=== PATIENT | male | born 1935 | race Caucasian/White ===

== ENCOUNTER 2017-06-17 09:00 | Outpatient (CLI) | payer MEDICARE ==
[2017-06-17] VITALS (8 sets, daily range): BP systolic 93–148; BP diastolic 49–73
[~2017-06-17] VITALS: Ht 165.1 cm; Wt 68.0 kg
[2017-06-17 09:24] LABS: HEMOGLOBIN 12.3 g/dL (13.0-17.5); RED BLOOD COUNT 3.87 x10^6/uL (4.30-5.70); RED CELL DISTRIBUTION WIDTH 13.3 % (11.5-14.5); WHITE BLOOD COUNT 9.7 x10^3/uL (4.0-11.0)
[2017-06-17 09:32] LABS: CALCIUM 9.1 mg/dL (8.5-10.1); CREATININE 1.4 mg/dL (0.7-1.3); GFR 48.6; POTASSIUM 4.5 mmol/L (3.5-5.1)
[2017-06-17 09:38] LABS: INR 1.1 (0.8-1.1); PROTHROMBIN TIME PATIENT 13.8 SEC (11.7-14.0)
[2017-06-17] MEDS ORDERED: FLUT9.9S NS (09:50)
[2017-06-17] MEDS ORDERED: METO-269 PO (09:50)
[2017-06-17] MEDS ORDERED: RAMI10CA34 PO (09:50)
[2017-06-17] MEDS ORDERED: ASPI-482 PO (09:50)
[2017-06-17] MEDS ORDERED: BACITRACIN 50,000 UNIT in IV NORMAL SALINE 250ML 250 ML IRR ONE (10:00)
[2017-06-17] MEDS ORDERED: LIDOCAINE 2%/EPI 1:100,000 20 ML VIAL. ONE (10:14)
[2017-06-17] MEDS ORDERED: fentaNYL PF VIAL 250 MCG/5 ML VIAL ONE (10:23)
[2017-06-17] MEDS ORDERED: MIDAZOLAM HCL/PF 5 MG/5 ML VIAL. ONE (10:24)
[2017-06-17] MEDS ORDERED: fentaNYL PF VIAL 250 MCG/5 ML VIAL IV ONE (11:15)
[2017-06-17] MEDS ORDERED: LIDOCAINE 2%/EPI 1:100,000 20 ML VIAL. IJ ONE (11:15)
[2017-06-17] MEDS ORDERED: MIDAZOLAM HCL/PF 5 MG/5 ML VIAL. IV ONE (11:15)
--- NOTE | 2017-06-17 11:34 | CARD ---
APPROVED REPORT Procedure(s) performed: Successful Biotronik dual-chamber permanent pacemaker generator change Moderate sedation: 26 minutes INDICATION The indication(s) include : Sick sinus syndrome s/p permanent pacemaker implantation presenting with battery depletion. PROCEDURE NARRATIVE After his pain the risks, benefits and alternative options, informed consent was obtained from luke altman. Patient was brought to the cardiac [facility] and his left chest and shoulder were prepped and drape d in the usual fashion. 20 mL of 2% lidocaine was infiltrated into the skin and subcutaneous tissues for local anesthesia. An incision was then made over the previous scar in the left infraclavicular fo ssa and using blunt dissection and cautery, the pocket was opened, capsule exposed and opened and the previously placed generator removed from the pocket. The leads were detached, interrogated and found to be functioning well and reattached to a Biotronik dual-chamber permanent pacemaker generator mode l [place] 8 DR-T serial #[id number]. This was placed in the pocket was subsequently closed in 3 layers. Hemostasis was secured. Patient tolerated the procedure well. There were no immediate complications. Conclusion Successful Biotronik dual-chamber permanent pacemaker generator change for battery depletion.
--- NOTE | 2017-06-17 12:04 | PDOC ---
MODERATE SEDATION ASSESSMENT RISKS/ALTERNATIVES Risks/Alternatives Risks and alternatives of this type of sedation and procedure discussed with: RISK/ALTERNATIVES: Patient H & P ON CHART H & P H & P on chart and reviewed for co-morbid conditions and appropriate labs. H&P ON CHART: Yes STATUS PREG STATUS ASSESSED: N/A MEDS/ALLERGIES REVIEWED Meds/Allergies Reviewed Medications and Allergies including time and route of recently administered narcotics and sedatives. MEDS/ALLERGIES REVIEWED: Yes ASA RATING ASA RATING: II AIRWAY ASSESSMENT Airway Assessment Airway patency, oral function limitations, presence of caps, crowns, dentures, partials, and ability to extend neck assessed. AIRWAY ASSESSMENT: Yes MALLAMPATI SCORE MALLAMPATI SCORE: II PRE-SEDATION ASSESSMENT PRE-SEDATION ASSESSMENT: Yes DEZ BEAVER MD Jun 17, 2017 12:04
[2017-06-17] MEDS ORDERED: NO ANTICOAGULANT THERAPY. MC PRN (12:15)
== END 2017-06-17 13:20 | disposition home or self-care (01) ==
LOC: CCL 09:00
PROVIDERS: ATTEND Internal Medicine Cardiovascular Disease
DX: Z45.010 Encounter for checking and testing of cardiac pacemaker pulse generator [battery] (principal); I49.5 Sick sinus syndrome; I25.10 Atherosclerotic heart disease of native coronary artery without angina pectoris; E78.5 Hyperlipidemia, unspecified; I10 Essential (primary) hypertension; Z98.41 Cataract extraction status, right eye; Z98.42 Cataract extraction status, left eye
CPT/HCPCS: 33213; 36415; 80048; 85027; 85610; C1785; J0690; J2250; J3010; J3490; J7050; 99152; 99153; J7030

== ENCOUNTER → 2018-03-05 | Outpatient (CLI) | payer MEDICARE | END | disposition home or self-care (01) | LOC: ECHO 08:58 | DX: I49.5 Sick sinus syndrome (principal); I08.1 Rheumatic disorders of both mitral and tricuspid valves | CPT/HCPCS: 93306 ==

== ENCOUNTER → 2018-08-13 | Outpatient (CLI) | payer MEDICARE ==
[2017-06-17 12:45] VITALS: BP 110/53
[~2018-08-13] MED LIST: ASPI-482 PO; FLUT9.9S NS; METO-269 PO; RAMI10CA34 PO
--- NOTE | 2018-08-13 14:48 | RAD ---
MR#: [id number] Date of Study: 08/13/2018 Ordering Physician: DEZ BEAVER, Referring Physician: DEZ BEAVER, Tech: GOKUL Lu, RDMS, RTR APPROVED REPORT Left Upper Extremity Venous Study for DVT. Patient Location: OUT-PATIENT Findings Grayscale images of the internal jugular, subclavian, axillary, ulnar and radial as well as brachial veins do not reveal any obvious evidence of thrombus. There is normal spontaneous flow noted. Images are limited but appears to be a clot in the mid basilic and mid cephalic veins on the left james e. Critical Notification Critical Value: No <Conclusion> 1. Negative for LUE DVT. 2. Positive superficial thrombus in the basilic and cephalic veins. (limited images) Signed by : Eder Hernandez, Electronically Approved : 08/13/2018 14:46:57
== END | disposition home or self-care (01) ==
LOC: US 11:58
PROVIDERS: ATTEND Internal Medicine Cardiovascular Disease
DX: I82.622 Acute embolism and thrombosis of deep veins of left upper extremity (principal)
CPT/HCPCS: 93971

== ENCOUNTER 2019-02-01 09:10 | Day surgery (SDC) | payer MEDICARE ==
[~2019-02-01 09:10] MED LIST changes: +ACET325T9 PO; +FURO-69 PO; +HYDROmorphone 2 MG/ML VIAL IV PRN; +IV RINGERS,LACTATED 1000ML 1,000 ML IV SCH; +LIDOCAINE 1% PF 2 ML VIAL. ID PRN; +METO-239 PO; +MORPHINE SULFATE 2 MG/ML VIAL. IV PRN; +MULT-114 PO; +ONDANSETRON PF 4 MG/2 ML VIAL. IV PRN; +POLY2500 PO; +PROCHLORPERAZINE 10 MG/2 ML VIAL. IV PRN; +SENN-37 PO; +fentaNYL PF VIAL 100 MCG/2 ML VIAL IV PRN
[2019-02-01] MEDS ORDERED: BENZOCAINE ONE 20% MUCOSAL SPRAY. (09:45)
[2019-02-01] MEDS ORDERED: LIDOCAINE 2% TOPICAL JELLY 30GM TUBE. TP ONE (09:46)
[2019-02-01] MEDS ORDERED: LIDOCAINE 2% VISCOUS 15 ML SOLUTION. ONE (09:46)
[2019-02-01] MEDS ORDERED: PROPOFOL 40 ML IV ONE (10:06)
[2019-02-01] MEDS ORDERED: LIDOCAINE 2% PF 5 ML VIAL. ONE (10:06)
[2019-02-01 11:15] VITALS: BP 112/62
--- NOTE | 2019-02-02 16:33 | CARD ---
MR#: [id number] Date of Study: 02/01/2019 Ordering Physician: DEZ BEAVER, Referring Physician: Angie THOMAS: Sheryl Valerio RDCS APPROVED REPORT EXAM: Transesophageal echocardiogram with color flow Doppler. INDICATION Mitral Valve Disease Mitral Valve MV E Peak Gr.94mmHg Tricuspid Valve TR P. [id number] Peak Gr.35mmHg PROCEDURE After obtaining informed consent, patient underwent transesophageal echo in the PACU. Type of Sedation : General Anesthesia Sedation was administered by SOFÍA Mo. Sedation was achieved with Propofol 80mg intravenously. Throughout the procedure, the blood pressure, pulse oximetry, cardiac rhythm, and rate were monitored . LEFT VENTRICLE The left ventricle is normal size. There is mild concentric left ventricular hypertrophy. The left ve ntricular systolic function is normal. The Ejection Fraction is 55%. Septal motion consistent with po st-operative state. RIGHT VENTRICLE The right ventricle is normal size. There is normal right ventricular wall thickness. The right ventr icular systolic function is normal. Pacer lead noted in RV/RA. ATRIA The left atrium is mildly dilated. The right atrium is mildly dilated. The interatrial septum is inta ct with no evidence for an atrial septal defect or patent foramen ovale as noted on 2-D or Doppler im aging. Left atrial appendage appears to have been ligated/excluded. AORTIC VALVE The aortic valve is trileaflet. The right coronary cusp is calcified Doppler and Color Flow revealed mild aortic regurgitation. There is no significant aortic valvular stenosis. There is no aortic valvu lar vegetation. MITRAL VALVE The mitral valve is thickened but opens well. There is no evidence of mitral valve prolapse. There is no mitral valve stenosis. Doppler and Color-flow revealed moderate to severe mitral regurgitation. M R EROA 0.34 to 0.37 cm2 and MR volume 46 ml. TRICUSPID VALVE The tricuspid valve is normal in structure and function. Doppler and Color Flow revealed severe tricu spid regurgitation. There is mild to moderate pulmonary hypertension. The PA pressure was estimated a t 38 mmHg. There is no tricuspid valve prolapse or vegetation. There is no tricuspid valve stenosis. PULMONIC VALVE The pulmonary valve is normal in structure and function. Doppler and Color Flow revealed no pulmonic valvular regurgitation. There is no pulmonic valvular stenosis. GREAT VESSELS The aortic root is normal in size. The ascending aorta is normal in size. Systolic flow reversal (sug gestive of severe MR) in the pulmonary veins. PERICARDIAL EFFUSION There is no evidence of significant pericardial effusion. Critical Notification Critical Value: No <Conclusion> The left ventricular systolic function is normal. The Ejection Fraction is 55%. Septal motion consistent with post-operative state. Pacer lead noted in RV/RA. Mild aortic regurgitation. Moderate to severe mitral regurgitation with MR EROA 0.34 to 0.37 cm2 and MR volume 46 ml. Severe tricuspid regurgitation, mild to moderate pulmonary hypertension with PA pressure estimated at 38 mmHg. There is no evidence of significant pericardial effusion. Signed by : Dez Beaver, Electronically Approved : 02/02/2019 16:33:01
== END 2019-02-01 11:30 | disposition home or self-care (01) ==
LOC: SURG 09:10
PROVIDERS: ATTEND Internal Medicine Cardiovascular Disease
DX: I08.3 Combined rheumatic disorders of mitral, aortic and tricuspid valves (principal); I27.20 Pulmonary hypertension, unspecified; I11.0 Hypertensive heart disease with heart failure; I50.9 Heart failure, unspecified; E78.5 Hyperlipidemia, unspecified; I25.2 Old myocardial infarction; I49.5 Sick sinus syndrome; Z79.82 Long term (current) use of aspirin; Z79.899 Other long term (current) drug therapy; Z95.1 Presence of aortocoronary bypass graft; Z95.0 Presence of cardiac pacemaker; Z98.49 Cataract extraction status, unspecified eye; Z96.1 Presence of intraocular lens
CPT/HCPCS: 93312; 93320; 93325; J2001; J2704

== ENCOUNTER → 2021-06-13 | Outpatient (CLI) | payer MEDICARE ==
[~2021-06-13] MED LIST changes: -HYDROmorphone 2 MG/ML VIAL IV PRN; -IV RINGERS,LACTATED 1000ML 1,000 ML IV SCH; -LIDOCAINE 1% PF 2 ML VIAL. ID PRN; -MORPHINE SULFATE 2 MG/ML VIAL. IV PRN; -ONDANSETRON PF 4 MG/2 ML VIAL. IV PRN; -PROCHLORPERAZINE 10 MG/2 ML VIAL. IV PRN; -fentaNYL PF VIAL 100 MCG/2 ML VIAL IV PRN
--- NOTE | 2021-06-13 12:15 | CARD ---
MR#: [id number] Date of Study: 06/13/2021 Ordering Physician: DEZ BEAVER, Referring Physician: DEZ BEAVER Tech: Heather Hurley MANSOOR APPROVED REPORT EXAM: Two-dimensional and M-mode echocardiogram with Doppler and color Doppler. Other Information Quality : AverageLimitedTechnically LimitedExcellentGoodHR: 86bpm Rhythm : NSR INDICATION Mitral Valve Disease RISK FACTORS Hypertension 2D DIMENSIONS RVDd4.3 (2.9-3.5cm)Left Atrium(2D)4.3 (1.6-4.0cm) IVSd1.1 (0.7-1.1cm)Aortic Root(2D)3.4 (2.0-3.7cm) LVDd3.5 (3.9-5.9cm)LVOT Diameter1.8 (1.8-2.4cm) PWd1.4 (0.7-1.1cm)LVDs2.7 (2.5-4.0cm) FS (%) 24.8 %SV26.1 ml Aortic Valve AoV Peak Cipriano.190.0cm/sAoV VTI36.6cm AO Peak GR.14.4mmHgLVOT Peak Cipriano.115.7cm/s AO Mean GR.6mmHgAVA (VMAX)1.62cm2 Mitral Valve MV E Tvnfndou358.4cm/s Tricuspid Valve TR P. [id number]/sTR Peak Gr.40mmHg LEFT VENTRICLE The left ventricle is normal size. There is mild concentric left ventricular hypertrophy. The left ve ntricular systolic function is normal and the ejection fraction is within normal range. LV ejection fraction is 55 - 60%. There is normal LV segmental wall motion. RIGHT VENTRICLE The right ventricle is normal size. There is normal right ventricular wall thickness. The right ventr icular systolic function is normal. Device lead in the right ventricle. ATRIA The left atrium size is normal. The right atrium size is normal. The interatrial septum is intact wit h no evidence for an atrial septal defect or patent foramen ovale as noted on 2-D or Doppler imaging. AORTIC VALVE The aortic valve is calcified but opens well. Doppler and Color Flow revealed mild aortic regurgitati on. There is no significant aortic valvular stenosis. MITRAL VALVE MV clip present. There is no evidence of mitral valve prolapse. There is no significant mitral valve stenosis. Doppler and Color-flow revealed mild mitral regurgitation. TRICUSPID VALVE The tricuspid valve is normal in structure and function. Doppler and Color Flow revealed mild tricusp id regurgitation. There is no tricuspid valve stenosis. PULMONIC VALVE The pulmonary valve is normal in structure and function. Doppler and Color Flow revealed mild pulmoni c valvular regurgitation. GREAT VESSELS The aortic root is normal in size. The ascending aorta is normal in size. The IVC is normal in size a nd collapses >50% with inspiration. PERICARDIAL EFFUSION There is no evidence of significant pericardial effusion. Critical Notification Critical Value: No <Conclusion> The left ventricle is normal size. The left ventricular systolic function is normal and the ejection fraction is within normal range. LV ejection fraction is 55 - 60%. There is mild concentric left ventricular hypertrophy. Doppler and Color Flow revealed mild aortic regurgitation. There is no significant aortic valvular stenosis. MV clip present. There is no significant mitral valve stenosis. Doppler and Color-flow revealed mild mitral regurgitation. Doppler and Color Flow revealed mild tricuspid regurgitation. Signed by : Manfred Rodriguez MD Electronically Approved : 06/13/2021 12:14:33
== END ==
LOC: ECHO 09:42
PROVIDERS: ATTEND Internal Medicine Cardiovascular Disease
DX: I08.8 Other rheumatic multiple valve diseases (principal)
CPT/HCPCS: 93306

== ENCOUNTER 2021-11-12 10:15 | Emergency (ER) | payer MEDICARE ==
[~2021-11-12] VITALS: Ht 170.2 cm; Wt 59.3 kg
[2021-11-12 11:29] LABS: BILIRUBIN,URINE NEGATIVE (NEG); CLARITY,URINE CLEAR; COLOR,URINE YELLOW
[2021-11-12 11:30] LABS: HYALINE CASTS, URINE FEW /HPF; NITRITE,URINE NEGATIVE (NEG); PH,URINE 6.5 (<5.0-8.0); PROTEIN,URINE NEGATIVE (NEG-TRACE)
[2021-11-12 11:31] LABS: BACTERIA,URINE 0 /HPF (0-FEW); WBC,URINE 0 /HPF (0-4)
--- NOTE | 2021-11-12 11:31 | RAD ---
Supine abdomen. HISTORY: Constipation Supine view was taken of the abdomen. Patient's had previous lumbar fusion at L4-5. 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 There is no pelvi c fracture. Bowel pattern of the abdomen is normal. There is not abnormal stool in the colon. Patient 's had a cholecystectomy. IMPRESSION: 1. Bowel pattern of the abdomen is normal. 2. There is not evidence to suggest constipation. Electronically signed by: Jose Ramon Elias MD (11/12/2021 11:28 AM) [facility]
[2021-11-12] MEDS ORDERED: PSYL0.5215 PO (12:16)
--- NOTE | 2021-11-12 12:16 | PHYS DOC ---
Past Medical History Additional Past Medical Histor: HEART STENT Past Surgical History: Other Additional Past Surgical Histo: HEART STENT Smoking Status: Never Smoker Alcohol Use: None Adult General Chief Complaint Chief Complaint: CONTISPATION HPI HPI Patient is a 86 year old male with constipation. Patient states he has not had a bowel movement in the last 2 days. He has the urge to go but has not been to pass anything. He denies any abdominal pain, no abdominal cramps. No fever or dysuria. No recent trauma. Review of Systems Review of Systems Constitutional: Denies fever Eyes: Denies change in visual acuity or eye pain HENT: Denies sore throat Respiratory: Denies shortness of breath Cardiovascular: Denies chest pain GI: Denies abd pain : Denies dysuria Musculoskeletal: Denies back or extremity injury Integument: Denies rash or skin lesions Neurologic: Denies headache, focal weakness or sensory changes All other systems were reviewed and found to be within normal limits, except as documented in this note. Allergies Allergies Allergies Coded Allergies Type Severity Reaction Last Updated Verified ciprofloxacin Adverse Reaction Intermediate CRAZY IN THE HEAD (DISORIENTED,DID NOT KNOW ANYBODY) 02/01/19 Yes Physical Exam Physical Exam Constitutional: Well developed, well nourished, no acute distress, non-toxic appearance. HENT: Normocephalic, atraumatic, bilateral external ears normal, mucosa moist, nose normal. Eyes: EOMI, conjunctiva normal, no discharge. Neck: Normal range of motion, supple, no stridor, no meningeal signs. Cardiovascular: Regular rate and rhythm Lungs & Thorax: Bilateral breath sounds clear to auscultation Abdomen: Soft, no tenderness or obvious masses Rectal: Normal tone, small hemorrhoid at 9 o'clock position. No fissures. Skin: Warm, dry, no erythema, no rash. Extremities: No tenderness, no cyanosis, no clubbing, ROM intact, no edema. Neurologic: Alert and oriented, normal motor function, normal sensory function, no focal deficits noted. Psychologic: Affect normal, judgement normal, mood normal. Current Patient Data Vital Signs Vital Signs Date Time Temp Pulse Resp B/P (MAP) Pulse Ox O2 Delivery O2 Flow Rate FiO2 11/12/21 11:50 84 18 137/61 (86) 100 Room Air 11/12/21 10:15 98.1 98.1 Lab Values Laboratory Tests Test 2/28/22 10:50 Urine Collection Type Void Urine Color Yellow Urine Clarity Clear Urine pH 6.5 (<5.0-8.0) Urine Specific Brickeys 1.025 (1.000-1.030) Urine Protein Negative mg/dL (NEG-TRACE) Urine Glucose (UA) Negative mg/dL (NEG) Urine Ketones (Stick) Negative mg/dL (NEG) Urine Blood Small (NEG) Urine Nitrite Negative (NEG) Urine Bilirubin Negative (NEG) Urine Urobilinogen Dipstick 1.0 mg/dL (0.2 mg/dL) Urine Leukocyte Esterase Negative (NEG) Urine RBC 3-5 /HPF (0-2) Urine WBC 0 /HPF (0-4) Urine Squamous Epithelial Cells Occ /LPF Urine Bacteria 0 /HPF (0-FEW) Urine Hyaline Casts Few /HPF Urine Mucus Marked /LPF EKG EKG [] Radiology/Procedures Radiology/Procedures [] Impressions: PATIENT: CHRISTOPHER PULIDO AACCOUNT: [id number]#: [id number] : 1935 LOCATION: ER AGE: 86 SEX: M EXAM STATUS: REG ER ORD. PHYSICIAN: NICHOLAS MADISON MD REASON: constipation PROCEDURE: KUB Supine abdomen. HISTORY: Constipation Supine view was taken of the abdomen. Patient's had previous lumbar fusion at L4-5. 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 There is no pelvic fracture. Bowel pattern of the ab domen is normal. There is not abnormal stool in the colon. Patient's had a cholecystectomy. IMPRESSION: 1. Bowel pattern of the abdomen is normal. 2. There is not evidence to suggest constipation. Electronically signed by: Jose Ramon Elias MD (11/12/2021 11:28 AM) [facility] DICTATED and SIGNED BY: JOSE RAMON ELIAS MD DATE: 11/12/21 [id number] Course & Med Decision Making Course & Med Decision Making Pertinent Labs and Imaging studies reviewed. (See chart for details) [] Is an 86-year-old male who states he feels constipated. KUB was negative for evidence of constipation at this time though. No evidence of obstruction or other acute abnormality. When I went back to talk with the patient will be more he says he does not really have any pain he was concerned that he has not been passing stools in the last couple of days. We will start him on Metamucil and have him follow-up with his primary care physician, he is stable for discharge. Dragon Disclaimer Dragon Disclaimer This electronic medical record was generated, in whole or in part, using a voice recognition dictation system. Departure Departure Impression: Primary Impression: Constipation Disposition: HOME / SELF CARE / HOMELESS Condition: STABLE Referrals: STU HUBER (PCP) Patient Instructions: Constipation, Adult Scripts Psyllium Husk (METAMUCIL) 0.52 Gm Capsule 2 CAP PO BID for 30 Days, #120 CAP 0 Refills Prov: NICHOLAS MADISON MD 11/12/21 NICHOLAS MADISON MD Nov 12, 2021 12:16
[2021-11-12 12:19] VITALS: BP 137/61
== END 2021-11-12 12:39 | disposition home or self-care (01) ==
LOC: ER 10:15
DX: K59.00 Constipation, unspecified (principal); Z88.1 Allergy status to other antibiotic agents; Z95.5 Presence of coronary angioplasty implant and graft
CPT/HCPCS: 74018; 81001; 99284